=== PATIENT | female | born 1945 | race Caucasian/White ===

== ENCOUNTER 2023-06-12 09:15 | Day surgery (SDC) | payer MEDICARE, OTHER, SELFPAY ==
[2023-06-12 09:34] VITALS: BP 143/64; PULSE 71; RESP 18; TEMP 36.2; O2SAT 98; BMI 25.6
[2023-06-12 09:43] VITALS: BMI 25.6
[2023-06-12] MEDS: Lactated Ringers 1,000 ML 50 ML IVCONT (10:13)
--- NOTE | 2023-06-12 10:27 | HO.ANESPROP2 ---
HPI - Anesthesia Eval Consult details Narrative: 77 yo male patient for EGD with Balloon Dilatation PMFSH Active Problems Active Problems: All Active Problems (Updated 06/12/23 @ 10:29 by Faith Smith MD) Mass of breast, right (Acute) Dysphagia GERD Hiatal hernia Past Medical History Medical History Breast cancer HTN (hypertension) Hypothyroidism Urinary frequency Family History Family history of problems with anesthesia: No Surgical History Surgical History (Updated 06/12/23 @ 10:54 by Faith Smith MD) H/O breast surgery H/O colonoscopy H/O left breast biopsy History of breast lump/mass excision History of esophagogastroduodenoscopy (EGD) Hx of cholecystectomy History of Problems with Anesthesia: No Social History Social History Patient Tobacco Use Status: Never used Tobacco Use of substances other than those prescribed or required for medical reasons: No Are you DNR?: No Advance Directives: No Advance Directives Information Provided: Yes Meds Allergies Allergy/AdvReac Type Severity Reaction Status Date / Time prednisone AdvReac Unknown palpitation Verified 06/11/23 13:51 s,htn Active Medications: Current Medications Lactated Ringer's (Lr) 1,000 mls @ 50 mls/hr IVCONT .Q20H BARB Last Admin: 06/12/23 10:13 Dose: 50 mls/hr Home Medications Medication Instructions Recorded Confirmed Last Taken Type amlodipine 2.5 mg tablet 2.5 mg PO DAILY 06/11/23 06/11/23 Unknown History levothyroxine 50 mcg tablet 50 mcg PO 06/11/23 Unknown History oxybutynin chloride 10 mg 10 mg PO DAILY PRN urinary 06/11/23 06/11/23 Unknown History tablet,extended release 24 hr frequency tamoxifen 20 mg tablet 20 mg PO DAILY 06/11/23 06/11/23 Unknown History Exam Exam Date and Time: June 12, 2023 1027 Height,Weight and Vital Signs: Height 4 ft 11 in Weight 57.606 kg Last Vital Signs Temp 97.1 F 06/12/23 09:34 Pulse 71 06/12/23 09:34 Resp 18 06/12/23 09:34 BP 143/64 H 06/12/23 09:34 Pulse Ox 98 06/12/23 09:34 O2 Del Method Room Air 06/12/23 09:34 Airway Mallampati Class: III (Small mouth) TM Dist: >3cm Neck ROM: Full Loose/Missing/Broken Teeth: No (Denies broken, loose, missing teeth) Heart: RRR Lungs: CTAB Assessment and Plan Assessment Anesthesia Assessment: Anesthesia Plan Discussed and Chart Reviewed Final Anesthetic Review Family History of Problems with Anesthesia: No History of Problems with Anesthesia: No NPO: Yes ASA Class: II Final Preanesthetic Review: No Changes in Pt Med Stat, Meds/Allgs Chart Reviewed, Consent Obtained/Reviewed and Anes Risks/Benef Reviewed Patient Risk: Low Procedure Risk: Low Assessment/Block/Sedation in SS: Assess/Block/Sedation-SS Anesthetic Plan Anesthetic Plan: MAC: Disposition: Standard PACU
[2023-06-12 11:23] VITALS: BP 95/60; PULSE 81; RESP 16; TEMP 36.2; O2SAT 99
--- NOTE | 2023-06-12 11:31 | P.BOP_ITS ---
Brief Operative Note Date of Service: 06/12/23 Pre-op diagnosis: Dysphagia, anemia Post-op diagnosis: other (Hiatal hernia, R/O Celiac disease, R/O EoE) Procedure: EGD with biopsies Surgeon: Arnulfo Sheth Anesthesia: MAC Was an Correctional Supervisor used for this Procedure?: No Estimated blood loss (mL): 2.0 Pathology: other (A. Descending duodenum B. Gastric antrum C. EG Junction at 35cm D. Esophagus 20-25cm) Condition: stable Disposition: PACU
[2023-06-12 11:38] VITALS: BP 116/61; PULSE 79; RESP 20; TEMP 37.1; O2SAT 95
--- NOTE | 2023-06-12 13:44 | OP_ITS ---
DATE OF SERVICE: 06/12/2023 SURGEON: Arnulfo Sheth MD INDICATIONS: The patient presents for evaluation of dysphagia, weight loss, and anemia. Full consent has been obtained from her for this, including risks of bleeding and perforation. PREOPERATIVE DIAGNOSIS: POSTOPERATIVE DIAGNOSIS: PROCEDURE PERFORMED: Esophagogastroduodenoscopy with biopsies. ESTIMATED BLOOD LOSS: COMPLICATIONS: ANESTHESIA: Monitored anesthesia care. ASSISTANTS: SPECIMENS: PREOPERATIVE DIAGNOSES: Dysphagia, weight loss, and anemia. POSTOPERATIVE DIAGNOSES: Dysphagia, weight loss, and anemia, small hiatal hernia, rule out celiac disease, rule out eosinophilic esophagitis. DESCRIPTION OF PROCEDURE: The patient was placed in the left lateral decubitus position. The Olympus video gastroscope was passed in the posterior oropharynx and upper esophagus under direct vision. The scope was passed slowly to the distal esophagus. The gastroesophageal junction appeared at 35 cm. There was some very slight irregularity but no evidence of any esophagitis, definitive Vivas's mucosa, ulceration, mass, nor stricture. With insufflation of air, the gastroesophageal junction was widely patent. The scope easily entered into the stomach. There was a small hiatal hernia. The scope was advanced to the pylorus and the duodenum was cannulated to the descending portion. The duodenum including the bulb appeared normal without mass or ulceration. Biopsies were obtained from the 2nd and 3rd portions of duodenum. The scope was withdrawn back into the stomach. The gastric antrum had some very minimal areas of erythema, but no erosions or ulceration. There was good peristalsis. The scope was retroflexed visualizing the proximal stomach carefully, which appeared normal, without any mass or ulceration, other than several hyperplastic appearing gastric polyps. The scope was straightened. Biopsies were obtained from the gastric antrum. The scope was withdrawn back in the esophagus. The entire esophagus was carefully inspected. With insufflation of air, I did not visualize any sign of esophageal rings, strictures, nor webs. The mucosa appeared normal. The esophagus did not appear particularly distended. Peristalsis was perhaps somewhat subjectively diminished. There was no retained liquid nor food. I did obtain multiple biopsies at the EG junction at 35 cm. I did not think it required any type of dilation. I did obtain biopsies between 20 and 25 cm in the proximal esophagus as well. The scope was withdrawn from the patient. She tolerated the procedure well and was returned to the recovery area in stable condition. IMPRESSION: 1. Hiatal hernia. 2. Rule out eosinophilic esophagitis. 3. Rule out celiac disease. PLAN: The results of the biopsies will be checked. I shall put her on a trial of omeprazole 20 mg per day just to see if by treating any possible acid reflux might give her some relief of her swallowing symptoms. In the meantime, she will have a laboratory workup in regard to the elevated LFTs and positive FAINA. She may require a liver biopsy and /or esophageal motility studies for further evaluation as well. She will be seen for a followup visit in the office. This has all been discussed with her . MD CARIN Cueto/MARIANGEL / [id number] MTDD
== END 2023-06-12 12:15 | disposition home or self-care (01) ==
PROVIDERS: PCP Internal Medicine; Visit Provider Internal Medicine
PROC: (CPT 43239; principal; 2023-06-12 10:40)
DX: R13.19 Other dysphagia (principal); R63.4 Abnormal weight loss; Z68.24 Body mass index [BMI] 24.0-24.9, adult; R74.8 Abnormal levels of other serum enzymes; R76.8 Other specified abnormal immunological findings in serum; D64.9 Anemia, unspecified; K29.80 Duodenitis without bleeding; K29.50 Unspecified chronic gastritis without bleeding; K44.9 Diaphragmatic hernia without obstruction or gangrene; I10 Essential (primary) hypertension; E03.9 Hypothyroidism, unspecified; C50.911 Malignant neoplasm of unspecified site of right female breast; Z92.3 Personal history of irradiation; Z79.810 Long term (current) use of selective estrogen receptor modulators (SERMs); Z98.890 Other specified postprocedural states; R32 Unspecified urinary incontinence; Z79.899 Other long term (current) drug therapy; Z90.49 Acquired absence of other specified parts of digestive tract
CPT/HCPCS: 43239; 88305; 88342

== ENCOUNTER 2023-06-14 13:55 | Outpatient (REF) | payer MEDICARE, OTHER, SELFPAY ==
[2023-06-14 14:20] LABS: MANUAL DIFF FLAG NO
[2023-06-14 14:51] LABS: Basophils Absolute Auto 0.1 X10*3/uL (0.0-0.2); Basophils Percent Auto 0.5 % (0-2); Eosinophils Absolute Auto 0.2 X10*3/uL (0.0-0.4); Eosinophils Percent Auto 2.1 % (0-4); Hematocrit 31.7 % (37.0-47.0); Hemoglobin 9.8 g/dl (12.0-16.0); Imm Gran Abs Auto 0.05 X10*3/uL (0.00-0.03); Imm Gran Pct Auto 0.5 % (0.0-0.4); Lymphocytes Absolute Auto 1.3 X10*3/uL (1.2-4.9); Lymphocytes Percent Auto 12.2 % (20-40); Mean Corpuscular HGB Conc 30.9 g/dl (31.0-35.0); Mean Corpuscular Hemoglobin 25.1 pg (27.0-33.0); Mean Corpuscular Volume 81.3 fL (80.0-98.0); Mean Platelet Volume 9.3 fL (9.4-12.3); Monocytes Absolute Auto 0.9 X10*3/uL (0.1-1.2); Neutrophils Absolute Auto 7.9 x10*3/uL (2.0-8.3); Neutrophils Percent Auto 75.7 % (45-73); Platelet Count 451 X10*3/uL (160-400); Red Cell Distribution Width 14.8 % (11.0-16.0); White Blood Count 10.4 X10*3/uL (4.8-10.8)
[2023-06-14 14:58] LABS: Partial Thromboplastin Time 27.4 SEC (26.0-36.4)
[2023-06-14 15:47] LABS: Alanine Aminotransferase 98 U/L (0-31); Albumin Level 3.1 g/dL (3.5-5.0); Alkaline Phosphatase 79 U/L (39-117); Aspartate Amino Transferase 92 U/L (5-31); Bilirubin Direct 0.2 mg/dL (0.0-0.5); Bilirubin Total 0.4 mg/dL (0.0-1.0); C Reactive Protein 6.14 mg/dL (< or = 0.50); Iron 19 mcg/dL (30-160); Percent Iron Saturation 9 % (15-50); Total Iron Binding Capacity 208 mcg/dL (228-428); Total Protein 7.6 g/dL (6.5-8.0); Unsaturated Iron Binding 189 ug/dL
[2023-06-14 15:51] LABS: Ferritin 225 ng/mL (10-250); TSH reflex Free T4 3.97 uIU/mL (0.32-4.0)
[2023-06-14 16:04] LABS: Rheumatoid Factor < 13.0 IU/mL (<15.0)
[2023-06-14 16:06] LABS: Erythrocyte Sedimentation Rate 77 MM/HR (0-20); Folate 7.4 ng/mL (> or = 4.0); Vitamin B12 345 pg/mL (200-900)
[2023-06-17 14:08] LABS: Anti-Centromere B Antibodies <1.0 NEG AI (<1.0 NEG); Antibody to SS-A Antigen <1.0 NEG AI (<1.0 NEG); Antibody to SS-B Antigen <1.0 NEG AI (<1.0 NEG); Scleroderma 70 Antibody <1.0 NEG AI (<1.0 NEG)
[2023-06-17 14:43] LABS: Alpha 1 Anti-trypsin 270 mg/dL (83-199)
[2023-06-19 16:03] LABS: Mitochondrial Antibodies NEGATIVE (NEGATIVE)
[2023-06-20 14:08] LABS: Smooth Muscle Antibody 24 U (<20)
[2023-06-22 14:44] LABS: Anti Nuclear Antibody Pattern Nuclear, Homogeneous; Anti Nuclear Antibody Screen POSITIVE (NEGATIVE)
== END 2023-06-14 13:56 | disposition home or self-care (01) ==
LOC: HO.LAB 13:55
PROVIDERS: PCP Internal Medicine; Visit Provider Internal Medicine
DX: R63.4 Abnormal weight loss (principal); R74.8 Abnormal levels of other serum enzymes; R76.8 Other specified abnormal immunological findings in serum
CPT/HCPCS: 36415; 80076; 82103; 82607; 82728; 82746; 83540; 84443; 85025; 85610; 85652; 85730; 86015; 86038; 86039; 86140; 86235; 86255; 86256; 86431

== ENCOUNTER 2023-06-26 10:58 | Outpatient (REF) | payer MEDICARE, OTHER, SELFPAY ==
[2023-06-26 13:05] LABS: MANUAL DIFF FLAG NO
[2023-06-26 13:11] LABS: Basophils Percent Auto 0.4 % (0-2); Eosinophils Absolute Auto 0.1 X10*3/uL (0.0-0.4); Eosinophils Percent Auto 0.9 % (0-4); Hematocrit 31.2 % (37.0-47.0); Hemoglobin 9.9 g/dl (12.0-16.0); Imm Gran Abs Auto 0.04 X10*3/uL (0.00-0.03); Imm Gran Pct Auto 0.4 % (0.0-0.4); Lymphocytes Absolute Auto 1.3 X10*3/uL (1.2-4.9); Lymphocytes Percent Auto 13.7 % (20-40); Mean Corpuscular HGB Conc 31.7 g/dl (31.0-35.0); Mean Corpuscular Hemoglobin 25.3 pg (27.0-33.0); Mean Corpuscular Volume 79.6 fL (80.0-98.0); Mean Platelet Volume 9.3 fL (9.4-12.3); Monocytes Absolute Auto 0.7 X10*3/uL (0.1-1.2); Monocytes Percent Auto 7.3 % (2-11); Neutrophils Absolute Auto 7.3 x10*3/uL (2.0-8.3); Neutrophils Percent Auto 77.3 % (45-73); Platelet Count 421 X10*3/uL (160-400); Red Blood Count 3.92 X10*6/uL (4.20-5.50); Red Cell Distribution Width 15.4 % (11.0-16.0); White Blood Count 9.5 X10*3/uL (4.8-10.8)
[2023-06-26 13:23] LABS: Prothrombin Time 11.6 SEC (11.1-13.3)
[2023-06-26 13:26] LABS: Partial Thromboplastin Time 27.7 SEC (26.0-36.4)
== END 2023-06-26 10:59 | disposition home or self-care (01) ==
LOC: HO.10HDL 10:58
PROVIDERS: Visit Provider Internal Medicine
DX: R76.8 Other specified abnormal immunological findings in serum (principal); R79.89 Other specified abnormal findings of blood chemistry
CPT/HCPCS: 36415; 85025; 85610; 85730

== ENCOUNTER 2023-07-02 09:29 | Day surgery (SDC) | payer MEDICARE, OTHER, SELFPAY ==
--- NOTE | ~2023-07-02 | US_ITS ---
Ultrasound-guided liver biopsy INDICATIONS: Elevated LFTs After informed and written consent was obtained an official timeout was performed immediately prior to the procedure. I was personally responsible for the administration of moderate sedation services, all requirements were followed, an independent trained observer was utilized. Conscious sedation was initiated at 11:08 AM and discontinued at 11:23 AM. PROCEDURE: Initial ultrasound surveillance of the liver demonstrates a normal appearance of the right and left lobes of the liver. Via a subxiphoid approach the skin was prepped and draped in usual fashion. 1% Xylocaine was used for local anesthetic. Under direct ultrasound guidance a 18-gauge Temno core biopsy needle was placed into the left lobe of the liver. 5 core biopsy specimens were obtained. The needle was removed while injecting a gel foam slurry. Hemostasis was obtained. US/US biopsy liver IMPRESSION: Ultrasound-guided biopsy of the liver
[2023-07-02 09:43] VITALS: BMI 25.4
[2023-07-02 10:15] LABS: Anion Gap 13 (12-20); Blood Urea Nitrogen 9 mg/dL (9-16); Carbon Dioxide 24 mmol/L (22-29); Chloride 101 mmol/L (96-108); Creatinine Clr Calc Pharmacy 37.1; Estimated Glomerular Filt Rate 56; Potassium 3.5 mmol/L (3.3-5.1); Sodium 134 mmol/L (135-145)
[2023-07-02] MEDS: Lidocaine HCl 1 % MPF 5 ML VIAL SUBCUT ×2 (11:51→11:52)
[2023-07-02 12:00] VITALS: BP 125/56; PULSE 66; RESP 16; TEMP 37.2; O2SAT 97
[2023-07-02 12:15] VITALS: BP 134/69; PULSE 70; RESP 14; O2SAT 98
[2023-07-02 12:30] VITALS: BP 132/58; PULSE 68; RESP 16; O2SAT 98
[2023-07-02 12:45] VITALS: BP 126/56; PULSE 64; RESP 16; O2SAT 98
[2023-07-02 13:00] VITALS: BP 123/55; PULSE 67; RESP 16; O2SAT 98
[2023-07-02 13:15] VITALS: BP 125/51; PULSE 69; RESP 16; O2SAT 96
== END 2023-07-02 13:30 | disposition home or self-care (01) ==
PROVIDERS: Radiology Diagnostic Radiology; Radiology Vascular & Interventional Radiology; PCP Internal Medicine; Visit Provider Internal Medicine
DX: R76.8 Other specified abnormal immunological findings in serum (principal); R79.89 Other specified abnormal findings of blood chemistry; R13.19 Other dysphagia; R74.8 Abnormal levels of other serum enzymes; R53.83 Other fatigue; R63.4 Abnormal weight loss; K44.9 Diaphragmatic hernia without obstruction or gangrene; Z68.24 Body mass index [BMI] 24.0-24.9, adult; I10 Essential (primary) hypertension; E03.9 Hypothyroidism, unspecified; C50.911 Malignant neoplasm of unspecified site of right female breast; Z79.810 Long term (current) use of selective estrogen receptor modulators (SERMs); Z79.899 Other long term (current) drug therapy; Z90.49 Acquired absence of other specified parts of digestive tract
CPT/HCPCS: 36415; 47000; 76942; 80051; 82565; 84520; 88307; 88313; 99152; J2250; J3010

== ENCOUNTER → 2023-07-02 11:00 | Outpatient (BNV) | payer MEDICARE, OTHER, SELFPAY | PROVIDERS: PCP Internal Medicine; Visit Provider Radiology Vascular & Interventional Radiology | DX: R76.8 Other specified abnormal immunological findings in serum (principal) | CPT/HCPCS: 47000; 76942 ==

== ENCOUNTER 2023-07-22 11:17 | Outpatient (REF) | payer MEDICARE, OTHER, SELFPAY ==
[2023-07-22 14:47] LABS: Alanine Aminotransferase 88 U/L (0-31); Albumin Level 3.4 g/dL (3.5-5.0); Alkaline Phosphatase 69 U/L (39-117); Aspartate Amino Transferase 45 U/L (5-31); Bilirubin Direct 0.3 mg/dL (0.0-0.5); Bilirubin Total 0.5 mg/dL (0.0-1.0); Total Protein 6.8 g/dL (6.5-8.0)
== END 2023-07-22 11:18 | disposition home or self-care (01) ==
LOC: HO.LAB 11:17
PROVIDERS: PCP Internal Medicine; Visit Provider Internal Medicine
DX: K75.4 Autoimmune hepatitis (principal)
CPT/HCPCS: 36415; 80076

== ENCOUNTER 2023-08-05 10:50 | Outpatient (REF) | payer MEDICARE, OTHER, SELFPAY ==
[2023-08-05 13:09] LABS: Alanine Aminotransferase 24 U/L (0-31); Albumin Level 3.4 g/dL (3.5-5.0); Alkaline Phosphatase 62 U/L (39-117); Aspartate Amino Transferase 17 U/L (5-31); Bilirubin Direct 0.2 mg/dL (0.0-0.5); Bilirubin Total 0.3 mg/dL (0.0-1.0); Total Protein 6.8 g/dL (6.5-8.0)
== END 2023-08-05 10:51 | disposition home or self-care (01) ==
LOC: HO.LAB 10:50
PROVIDERS: PCP Internal Medicine; Visit Provider Internal Medicine
DX: K75.4 Autoimmune hepatitis (principal)
CPT/HCPCS: 36415; 80076

== ENCOUNTER 2023-08-26 14:03 | Outpatient (REF) | payer MEDICARE, OTHER, SELFPAY ==
--- NOTE | ~2023-08-26 | CT_ITS ---
EXAMINATION: CT ABDOMEN AND PELVIS WITH CONTRAST CLINICAL INFORMATION: Abdominal pain. COMPARISON: None available. TECHNIQUE: Multidetector volumetric images were obtained from the superior aspect of the liver through the pubic symphysis following administration 85 mL of Omnipaque 350 intravenous contrast. Sagittal and coronal reformatted images were obtained on the technologist's workstation. Oral contrast: No This CT examination was performed using dose optimization techniques as appropriate, variously including the following: *Automated exposure control *Adjustment of mA and/or kV according to patient size (this includes techniques or standardized protocols for targeted exams where dose is matched to indication/reason for exam; i.e. extremities or head) *Use of iterative reconstruction technique DLP: 580 mGy-cm FINDINGS: LUNG BASES: There is minimal lingular scarring/chronic atelectasis LIVER, GALLBLADDER, AND BILIARY TREE: The liver is normal in size, shape, and attenuation. No focal hepatic lesion or biliary ductal dilatation is present. There has been a prior cholecystectomy. PANCREAS: Unremarkable. SPLEEN: Unremarkable. ADRENAL GLANDS: Unremarkable. KIDNEYS AND URETERS: There is a heterogeneous enhancing tumor left renal hilum measuring 3 x 3.3 x 3.1 cm with moderate infrarenal hydronephrosis. There is no hydroureter. There is left perinephric stranding. BLADDER: Unremarkable. GASTROINTESTINAL TRACT: There is retained stool throughout the colon. There are diverticula of the descending and the sigmoid colon without diverticulitis. ABDOMINAL WALL: No significant hernia is appreciated. LYMPH NODES: There are enlarged left upper retroperitoneal lymph nodes measuring up to 3.2 cm. VASCULAR: Unremarkable. PELVIC VISCERA: Pessary is noted in place. OSSEOUS STRUCTURES: There is diffuse [id number] thoracolumbar disc degenerative change with grade [address]/CT abdomen pelvis w IV con IMPRESSION: Heterogeneous enhancing 3 x 3.3 x 3.1 cm to lower left renal hilum with intrarenal hydronephrosis. Neoplasm is suspected. There is left upper retroperitoneal lymphadenopathy. Retained stool throughout the colon. Diverticula of the descending and the sigmoid colon without diverticulitis Fleischner guidelines were followed.
[2023-08-26] MEDS: Barium Sulfate Oral (Vanilla) 450 ML ORAL.SUSP 900 ML PO (17:02)
[2023-08-26] MEDS: iohexoL 350 MG/ML 100 ML INFUS..BTL IV (17:03)
[2023-08-28 07:10] LABS: Creatinine POC 0.9 mg/dL (0.5-1.4); GFR POC > 60
== END 2023-08-26 14:04 | disposition home or self-care (01) ==
LOC: HO.CT 14:03
PROVIDERS: PCP Internal Medicine; Visit Provider Internal Medicine
DX: R10.9 Unspecified abdominal pain (principal)
CPT/HCPCS: 74177; 82565; Q9967

== ENCOUNTER 2023-08-28 11:23 | Outpatient (REF) | payer MEDICARE, OTHER, SELFPAY ==
[2023-08-28 12:39] LABS: Alanine Aminotransferase 19 U/L (0-31); Albumin Level 3.3 g/dL (3.5-5.0); Alkaline Phosphatase 49 U/L (39-117); Aspartate Amino Transferase 15 U/L (5-31); Bilirubin Direct 0.3 mg/dL (0.0-0.5); Bilirubin Total 0.4 mg/dL (0.0-1.0); Total Protein 6.5 g/dL (6.5-8.0)
== END 2023-08-28 11:24 | disposition home or self-care (01) ==
LOC: HO.LAB 11:23
PROVIDERS: PCP Internal Medicine; Visit Provider Internal Medicine
DX: K75.4 Autoimmune hepatitis (principal)
CPT/HCPCS: 36415; 80076

== ENCOUNTER 2023-09-30 15:05 | Outpatient (REF) | payer MEDICARE, OTHER, SELFPAY ==
[2023-09-30 15:53] LABS: Alanine Aminotransferase 20 U/L (0-31); Albumin Level 3.7 g/dL (3.5-5.0); Alkaline Phosphatase 47 U/L (39-117); Aspartate Amino Transferase 20 U/L (5-31); Bilirubin Direct 0.2 mg/dL (0.0-0.5); Bilirubin Total 0.5 mg/dL (0.0-1.0); Total Protein 7.5 g/dL (6.5-8.0)
== END 2023-09-30 15:06 | disposition home or self-care (01) ==
LOC: HO.LAB 15:05
PROVIDERS: PCP Internal Medicine; Visit Provider Internal Medicine
DX: K75.4 Autoimmune hepatitis (principal)
CPT/HCPCS: 36415; 80076

== ENCOUNTER 2023-10-28 10:54 | Outpatient (REF) | payer MEDICARE, OTHER, SELFPAY ==
[2023-10-28 12:40] LABS: Alanine Aminotransferase 28 U/L (0-31); Albumin Level 3.5 g/dL (3.5-5.0); Alkaline Phosphatase 53 U/L (39-117); Aspartate Amino Transferase 26 U/L (5-31); Bilirubin Direct 0.2 mg/dL (0.0-0.5); Bilirubin Total 0.5 mg/dL (0.0-1.0)
== END 2023-10-28 10:55 | disposition home or self-care (01) ==
LOC: HO.LABR 10:54
PROVIDERS: PCP Internal Medicine; Visit Provider Internal Medicine
DX: K75.4 Autoimmune hepatitis (principal); R74.8 Abnormal levels of other serum enzymes
CPT/HCPCS: 36415; 80076